=== PATIENT | male | born 1995 | race Caucasian/White ===

== ENCOUNTER 2019-12-07 17:38 | Emergency (ER) | payer BC, SELFPAY ==
--- NOTE | ~2019-12-07 | US_ITS ---
EXAMINATION: US venous doppler [facility] DATE: 12/07/2019 18:25 INDICATION: Left lower limb pain TECHNIQUE: Anderson scale images without and with compression and Doppler images of the left lower extrem ity veins were obtained. COMPARISON: None FINDINGS: The left common femoral vein, profunda femoral vein, femoral vein, popliteal vein, peroneal trunk, posterior tibial veins, and greater saphenous vein are patent. IMPRESSION: 1. Patent left lower extremity veins. No evidence of deep venous thrombosis. Reviewed, dictated and finalized at location A.
--- NOTE | ~2019-12-07 | XR_ITS ---
EXAMINATION: XR chest 2V DATE: 12/07/2019 18:14 INDICATION: Shortness of breath and chest pain TECHNIQUE: PA and lateral views of the chest are obtained. COMPARISON: 09/06/2007 FINDINGS: The lungs are free of acute opacities. There is no pleural effusion or pneumothorax. The ca rdiomediastinal silhouette is normal. The visualized bones and soft tissues are unremarkable. IMPRESSION: 1. No acute cardiopulmonary abnormality. Reviewed, dictated and finalized at location A.
--- NOTE | 2019-12-07 17:39 | ECG_ITS ---
Measurements Intervals [place] Rate: 79 P: 16 NH: 155 QRS: 8 QRSD: 112 T: 14 QT: 361 QTc: 415 Interpretive Statements SINUS RHYTHM WITH SINUS ARRHYTHMIA INCOMPLETE RIGHT BUNDLE BRANCH BLOCK BORDERLINE R WAVE PROGRESSION, ANTERIOR LEADS BORDERLINE T WAVE ABNORMALITY- INFERIOR LEADS BORDERLINE ECG Electronically Signed On 12-07-2019 19:22:56 CDT by Layton Cruz D.O.
[2019-12-07 17:47] VITALS: BP 150/97; PULSE 91; RESP 16; TEMP 36.2; O2SAT 100
[2019-12-07 18:08] LABS: Basophils Absolute Auto 0.1 K/mm3 (0.0-0.1); Basophils Percent Auto 0.8 % (0.2-1.2); Eosinophils Absolute Auto 0.1 K/mm3 (0-0.3); Eosinophils Percent Auto 1.2 % (0-4.4); Hematocrit 43.5 % (42.0-52.0); Hemoglobin 15.1 g/dL (14.0-18.0); Immature Granulocyte Absolute 0.02 K/mm3 (0.00-0.031); Immature Granulocyte Percent A 0.3 % (0-0.5); Lymphocytes Absolute Auto 2.46 K/mm3 (0.9-3.2); Lymphocytes Percent Auto 32.8 % (18.3-44.2); Mean Corpuscular HGB Conc 34.7 g/dl (32-36); Mean Corpuscular Hemoglobin 31.1 pg (26-34); Mean Corpuscular Volume 89.7 fl (80-100); Mean Platelet Volume 10.8 fl (7.4-10.4); Monocytes Absolute Auto 0.6 K/mm3 (0.1-0.6); Monocytes Percent Auto 7.6 % (2.6-8.5); Neutrophils Absolute Auto 4.3 K/mm3 (1.3-6.7); Neutrophils Percent Auto 57.3 % (45.5-73.1); Platelet Count Result 215 k/mm3 (150-375); Red Blood Count 4.85 M/mm3 (4.6-6.20); Red Cell Distribution Width 12.3 % (11.5-14.5); White Blood Count 7.5 K/mm3 (4.5-10.0)
[2019-12-07 18:19] LABS: Prothrombin Time 12.7 Seconds (11.1-14.7)
[2019-12-07 18:20] LABS: Blood Urea Nitrogen 13 mg/dL (9-20); Calcium 9.3 mg/dL (8.4-10.2); Carbon Dioxide 22 mmol/L (22-30); Chloride 104 mmol/L (98-107); Estimated CRCL calculation 134 ml/min; Estimated Glomerular Filt Rate > 60; Glucose 99 mg/dL (75-110); Partial Thromboplastin Time 26.3 SECONDS (22.3-36.8); Sodium 137 mmol/L (137-145)
[2019-12-07 18:32] LABS: Troponin I < 0.012 ng/mL (0.000-0.034)
--- NOTE | 2019-12-07 19:23 | PC.NURSE ---
Pt to intake desk stating that he is feeling better and is going to leave. Iv that pt arrived with was removed from pt arm. Pt states that he will contact his primary to get his test results. Pt left with a steady gate.
== END 2019-12-07 19:23 | disposition left against medical advice (07) ==
PROVIDERS: Emergency Provider Emergency Medicine; PCP Family Medicine
DX: M79.605 Pain in left leg (principal)
CPT/HCPCS: 36415; 71046; 80048; 84484; 85025; 85610; 85730; 93005; 93971; 99199

== ENCOUNTER 2020-03-03 17:35 | Emergency (ER) | payer BC, SELFPAY ==
[2020-03-03 17:51] VITALS: BP 136/80; PULSE 96; RESP 18; TEMP 36; O2SAT 100
[2020-03-03 18:07] VITALS: BP 145/95; PULSE 95; RESP 18; O2SAT 100
[2020-03-03] MEDS: methylPREDNISolone SOD SUCC 125 MG VIAL IM (18:49)
--- NOTE | 2020-03-03 19:33 | ED.SKABFB ---
HPI - Skin/Abscess/Foreign Bdy General Chief complaint: Skin/Abscess/Foreign Body Stated complaint: rxn to cortisone? Time Seen by Provider: 03/03/20 18:06 Source: patient Mode of arrival: ambulatory Limitations: no limitations History of Present Illness HPI narrative: Patient presents for evaluation of red and warm rash on his arms across his chest and on his cheeks that began after he received a cortisone injection in his right elbow. Patient states he has felt a little flushed but denies fever, nausea, vomiting, diarrhea or lethargy. Patient has not taken anything to alleviate his symptoms. Patient denies any other areas of concern. Related Data Home Medications Medication Instructions Recorded Confirmed lisinopril 10 mg tablet 10 mg PO DAILY 01/20/20 Allergies Allergy/AdvReac Type Severity Reaction Status Date / Time No Known Allergies Allergy Mild Verified 01/20/20 16:48 Review of Systems Review of Systems: Narrative: CONSTITUTIONAL: Denies fever, chills, or sweats. EYES: Denies visual changes, redness, or discharge. ENT: Denies rhinorrhea, congestion, sore throat, or otalgia. CARDIOVASCULAR: Denies chest pain, palpitations, or edema. RESPIRATORY: Denies cough or dyspnea. GASTROINTESTINAL: Denies abdominal pain, nausea, vomiting, or diarrhea. GENITOURINARY: Denies dysuria or hematuria. SKIN: Reports rash denies itching. MUSCULOSKELETAL: Denies back pain, joint pain, or myalgia. NEUROLOGIC: Denies headache, numbness, dizziness, or weakness. PSYCHIATRIC: Denies anxiety or depression. [facility] Past Medical History Medical History (Updated 03/03/20 @ 19:44 by Maira Guzman PA-C) Anxiety Anxiety Cough Depression GERD (gastroesophageal reflux disease) Globus sensation Gout HTN (hypertension) Hypertension RINKU (obstructive sleep apnea) Seborrheic dermatitis of scalp Wellness examination Family History Family History (System 01/20/20 @ 16:48 by Beba Alicea) Mother Hypertension Social History Social History (System 01/20/20 @ 16:48 by Beba Alicea) Smoking status: Current some day smoker Tobacco type: cigarettes Second hand tobacco smoke exposure: No Smoking end date: 06/17/18 Alcohol intake: current Drinks per week: 6 Substance use: never Substance use type: does not use Gender identity (if verbalized by the patient): Male Exam Narrative: Exam Narrative: GENERAL: Well-appearing, well-nourished, and in no acute distress. HEAD: Normocephalic, atraumatic. EYES: PERRLA and EOMI. ENT: Nares clear, no rhinorrhea or epistaxis. Mucous membranes moist. Oropharynx without tonsillar hypertrophy exudate or other lesions- no rash, swelling, or erythema to oropharynx. Bilateral TMs pearly abraham non bulging NECK: Supple. No adenopathy or masses. CHEST: Clear to auscultation. No respiratory distress. No wheezes rales or rhonchi HEART: Regular rate and rhythm. No murmur heard. Normal peripheral pulses. EXTREMITIES: Normal range of motion. No edema. SKIN: Slightly red and warm to the upper arms,upper chest, and cheek, blanchable. NEURO: No focal deficits. Alert and oriented x3. PSYCH: Normal mood and affect. Course Vital Signs Vital signs: Vital Signs Temperature 96.8 F L 03/03/20 17:51 Pulse Rate 96 03/03/20 17:51 Respiratory Rate 18 03/03/20 17:51 Blood Pressure 136/80 03/03/20 17:51 Pulse Oximetry 100 03/03/20 17:51 Temperature 96.8 F L 03/03/20 17:51 Pulse Rate 95 03/03/20 18:07 Respiratory Rate 18 03/03/20 18:07 Blood Pressure 145/95 H 03/03/20 18:07 Pulse Oximetry 100 03/03/20 18:07 MDM - Skin/Abscess/Foreign Bdy MDM Narrative Medical decision making narrative: Patient improved with Solu-Medrol. Patient will be given Pepcid and zyrtec to take at home. Patient directed to follow-up with his primary care for reevaluation, sooner if he has any questions or concerns. Patient directed to return to emergency department if
[2020-03-03 20:18] VITALS: BP 140/89; PULSE 92; RESP 20; TEMP 36.2; O2SAT 99
== END 2020-03-03 20:18 | disposition home or self-care (01) ==
PROVIDERS: Emergency Provider Emergency Medicine; PCP Family Medicine
DX: L27.0 Generalized skin eruption due to drugs and medicaments taken internally (principal); T38.0X5A Adverse effect of glucocorticoids and synthetic analogues, initial encounter; K21.9 Gastro-esophageal reflux disease without esophagitis; M10.9 Gout, unspecified; I10 Essential (primary) hypertension; G47.33 Obstructive sleep apnea (adult) (pediatric)
CPT/HCPCS: 96372; 99283; J2930

== ENCOUNTER 2020-04-19 15:13 | Emergency (ER) | payer BC, SELFPAY ==
--- NOTE | ~2020-04-19 | XR_ITS ---
EXAMINATION: XR chest 2V DATE: 04/19/2020 16:43 INDICATION: Right chest pain. Shortness of breath. TECHNIQUE: Frontal and lateral views of the chest were obtained. COMPARISON: Chest 2 views 12/07/2019 FINDINGS: The chest demonstrates clear lungs without pneumonia, pleural effusion, or pneumothorax. Th e heart size is normal. IMPRESSION: 1. No acute cardiopulmonary disease. Reviewed, dictated and finalized at location A. SHAVER HELPER
--- NOTE | 2020-04-19 15:22 | ECG_ITS ---
Measurements Intervals [place] Rate: 94 P: 33 HI: 160 QRS: -80 QRSD: 112 T: 30 QT: 344 QTc: 432 Interpretive Statements SINUS RHYTHM INCOMPLETE RIGHT BUNDLE BRANCH BLOCK LEFT ANTERIOR FASCICULAR BLOCK BASELINE WANDER- II, III ABNORMAL ECG Electronically Signed On 04-20-2020 12:21:26 FITNESS SALES CONSULTANT by Layton Cruz D.O.
[2020-04-19 15:23] VITALS: BP 138/87; PULSE 99; RESP 18; TEMP 37.2; O2SAT 100
[2020-04-19 15:39] LABS: Basophils Absolute Auto 0.1 K/mm3 (0.0-0.1); Basophils Percent Auto 0.9 % (0.2-1.2); Eosinophils Absolute Auto 0.1 K/mm3 (0-0.3); Eosinophils Percent Auto 1.1 % (0-4.4); Hematocrit 44.3 % (42.0-52.0); Hemoglobin 15.6 g/dL (14.0-18.0); Immature Granulocyte Absolute 0.01 K/mm3 (0.00-0.031); Immature Granulocyte Percent A 0.1 % (0-0.5); Lymphocytes Absolute Auto 2.76 K/mm3 (0.9-3.2); Lymphocytes Percent Auto 39.7 % (18.3-44.2); Mean Corpuscular HGB Conc 35.2 g/dl (32-36); Mean Corpuscular Hemoglobin 31.6 pg (26-34); Mean Corpuscular Volume 89.7 fl (80-100); Mean Platelet Volume 9.8 fl (7.4-10.4); Monocytes Absolute Auto 0.5 K/mm3 (0.1-0.6); Monocytes Percent Auto 7.5 % (2.6-8.5); Neutrophils Absolute Auto 3.5 K/mm3 (1.3-6.7); Neutrophils Percent Auto 50.7 % (45.5-73.1); Platelet Count Result 241 k/mm3 (150-375); Red Blood Count 4.94 M/mm3 (4.6-6.20); Red Cell Distribution Width 12.4 % (11.5-14.5)
[2020-04-19 15:51] LABS: Prothrombin Time 13.4 Seconds (11.1-14.7)
[2020-04-19 15:52] LABS: Partial Thromboplastin Time 26.1 SECONDS (22.3-36.8)
--- NOTE | 2020-04-19 16:55 | PC.NURSE ---
In to place patient on monitor, states so what is the news, can I go? Explained to patient that I had given him a gown to change into, and was going to place on the cardiac tech to evaluate his rhythm. States oh, carloz, I thought I would be done a long time ago. I didn't know I have to wait some more. I have to go to work . Pt states has not been evaluated by an ERP, and that the blood work has not returned as of yet. Pt states, well, just call me with the results. I have to go to work. I think it was all anxiety anyways . Pt encouraged to return if pain worsens and to follow up with Dr. Li if pain does not reside. Ambulatory to exit.
== END 2020-04-19 16:58 | disposition left against medical advice (07) ==
PROVIDERS: Emergency Provider Emergency Medicine; PCP Family Medicine
DX: R07.9 Chest pain, unspecified (principal)
CPT/HCPCS: 36415; 71046; 85025; 85610; 85730; 93005; 99199

== ENCOUNTER 2020-04-27 18:23 | Emergency (ER) | payer BC, SELFPAY ==
[2020-04-27 18:42] VITALS: BP 121/68; PULSE 84; RESP 16; TEMP 36.6; O2SAT 100
--- NOTE | 2020-04-27 18:44 | ECG_ITS ---
Measurements Intervals [place] Rate: 84 P: 22 FL: 164 QRS: -5 QRSD: 104 T: 21 QT: 360 QTc: 426 Interpretive Statements SINUS RHYTHM WITH SINUS ARRHYTHMIA INCOMPLETE RIGHT BUNDLE BRANCH BLOCK BORDERLINE R WAVE PROGRESSION, ANTERIOR LEADS BORDERLINE ECG Electronically Signed On 04-28-2020 7:56:26 PULP SCREEN OPERATOR by Layton Cruz D.O.
--- NOTE | 2020-04-27 19:35 | PC.NURSE ---
pt called x 2 no response, charge nurse aware
--- NOTE | 2020-04-27 19:57 | PC.NURSE ---
Patient's name called multiple times at 1930 and 1952 for patient to be taken back to ED room. No answer.
--- NOTE | 2020-04-27 20:00 | PC.NURSE ---
Patient called at 1923,1929,nd 1949 without answer. Left wo being seen
== END 2020-04-27 20:00 | disposition left against medical advice (07) ==
LOC: ANHED 20:42
PROVIDERS: Emergency Provider Emergency Medicine; PCP Family Medicine
DX: R07.9 Chest pain, unspecified (principal)
CPT/HCPCS: 93005; 99199

== ENCOUNTER 2020-04-28 09:28 | Emergency (ER) | payer BC, SELFPAY ==
--- NOTE | ~2020-04-28 | XR_ITS ---
EXAMINATION: XR chest 2V DATE: 04/28/2020 10:34 INDICATION: Chest pain and shortness of breath. TECHNIQUE: Frontal and lateral views of the chest were obtained. COMPARISON: Chest 2 views 04/19/2020 FINDINGS: The chest demonstrates clear lungs without pneumonia, pleural effusion, or pneumothorax. Th e heart size is normal. IMPRESSION: 1. No acute cardiopulmonary disease. Reviewed, dictated and finalized at location B. EMAN
--- NOTE | 2020-04-28 10:06 | ECG_ITS ---
Measurements Intervals [place] Rate: 79 P: 11 OR: 171 QRS: 9 QRSD: 115 T: 19 QT: 362 QTc: 415 Interpretive Statements SINUS RHYTHM INCOMPLETE RIGHT BUNDLE BRANCH BLOCK DELAYED PRECORDIAL R/S TRANSITION BORDERLINE ECG Electronically Signed On 04-28-2020 14:42:46 BOTTOM SAW OPERATOR by Layton Cruz D.O.
[2020-04-28 10:08] VITALS: BP 138/86; PULSE 71; RESP 14; TEMP 36.1; O2SAT 99
[2020-04-28] MEDS: ASPIRIN 81 MG CHEWABLE TABLET 324 MG PO (10:27)
--- NOTE | 2020-04-28 10:42 | ED.ANXIETY ---
HPI - Anxiety General Chief Complaint: Anxiety Stated Complaint: panic attack with chest pain Time Seen by Provider: 04/28/20 10:00 Source: patient Mode of arrival: ambulatory Limitations: no limitations History of Present Illness HPI narrative: 24 years old white male presents with intermittent chest pain, shortness of breath, dizziness, numbness all over for the last few months. Patient was seen by his family physician 1 week ago and was told that he have anxiety related symptoms. Patient had history of hypertension, anxiety and depression. Patient reports a lot of stress lately. Patient denies any fever, chills, nausea, vomiting, headache, sore throat, fever or exposure to anybody with COVID-19 Related Data Home Medications Medication Instructions Recorded Confirmed buspirone 5 mg tablet 20 mg PO BID tablet 04/20/20 04/20/20 Allergies Allergy/AdvReac Type Severity Reaction Status Date / Time No Known Allergies Allergy Mild Verified 04/28/20 10:11 Review of Systems Review of Systems: Narrative: CONSTITUTIONAL: Denies fever, chills, or sweats. EYES: Denies visual changes, redness, or discharge. ENT: Denies rhinorrhea, congestion, sore throat, or otalgia. CARDIOVASCULAR: Denies chest pain, palpitations, or edema. RESPIRATORY: Denies cough or dyspnea. GASTROINTESTINAL: Denies abdominal pain, nausea, vomiting, or diarrhea. GENITOURINARY: Denies dysuria or hematuria. SKIN: Denies rash or itching. MUSCULOSKELETAL: Denies back pain, joint pain, or myalgia. NEUROLOGIC: Denies headache, numbness, or weakness. PSYCHIATRIC: Denies anxiety or depression. [facility] Past Medical History Medical History Anxiety Anxiety Cough Depression GERD (gastroesophageal reflux disease) Globus sensation Gout HTN (hypertension) Hypertension RINKU (obstructive sleep apnea) Seborrheic dermatitis of scalp Wellness examination Family History Family History Mother Hypertension Social History Social History Smoking status: Current some day smoker Tobacco type: cigarettes Second hand tobacco smoke exposure: No Smoking end date: 06/17/18 Alcohol intake: current Drinks per week: 6 Substance use: never Substance use type: does not use Gender identity (if verbalized by the patient): Male Exam Narrative: Exam Narrative: General appearance: Well-developed, well-nourished Skin: Normal color Head: Normocephalic, nontraumatic Eyes: Clear conjunctiva ENT: Oropharynx normal, ears normal, nose normal Neck: Supple, nontender Chest and respiratory: Airway patent, no respiratory distress, no accessory muscle use Heart: Regular rate/rhythm Abdomen: Soft, nontender, no organomegaly, quiet bowel sounds Vascular: Normal peripheral pulses, normal capillary refill. Musculoskeletal: Normal range of motion, nontender back Neurologic: Alert and oriented ?3, PUBLIC HOUSING MANAGER is normal as tested, no gross motor deficit Course Course Emergency Course: Stable Vital Signs Vital signs: Vital Signs Temperature 36.1 C L 04/28/20 10:08 Pulse Rate 71 04/28/20 10:08 Respiratory Rate 14 04/28/20 10:08 Blood Pressure 138/86 04/28/20 10:08 Pulse Oximetry 99 04/28/20 10:08 Temperature 36.1 C L 04/28/20 10:08 Pulse Rate 71 04/28/20 10:08 Respiratory Rate 14 04/28/20 10:08 Blood Pressure 138/86 04/28/20 10:08 Pulse Oximetry 99 04/28/20 10:08 MDM - Anxiety MDM Narrative Medical decision making narrative: Anxiety related symptom is my concern. Labs, chest x-ray, EKG ordered. Will Patient
[2020-04-28 10:44] LABS: Basophils Absolute Auto 0.1 K/mm3 (0.0-0.1); Basophils Percent Auto 0.8 % (0.2-1.2); Eosinophils Absolute Auto 0.1 K/mm3 (0-0.3); Eosinophils Percent Auto 1.4 % (0-4.4); Hematocrit 43.8 % (42.0-52.0); Hemoglobin 15.2 g/dL (14.0-18.0); Immature Granulocyte Absolute 0.02 K/mm3 (0.00-0.031); Immature Granulocyte Percent A 0.3 % (0-0.5); Lymphocytes Absolute Auto 2.28 K/mm3 (0.9-3.2); Lymphocytes Percent Auto 35.6 % (18.3-44.2); Mean Corpuscular HGB Conc 34.7 g/dl (32-36); Mean Corpuscular Hemoglobin 31.5 pg (26-34); Mean Corpuscular Volume 90.9 fl (80-100); Mean Platelet Volume 10.1 fl (7.4-10.4); Monocytes Absolute Auto 0.6 K/mm3 (0.1-0.6); Monocytes Percent Auto 8.6 % (2.6-8.5); Neutrophils Absolute Auto 3.4 K/mm3 (1.3-6.7); Neutrophils Percent Auto 53.3 % (45.5-73.1); Platelet Count Result 247 k/mm3 (150-375); Red Blood Count 4.82 M/mm3 (4.6-6.20); Red Cell Distribution Width 12.2 % (11.5-14.5); White Blood Count 6.4 K/mm3 (4.5-10.0)
[2020-04-28 10:56] LABS: Anion Gap 12 mmol/L (8-16); Blood Urea Nitrogen 18 mg/dL (9-20); Calcium 9.9 mg/dL (8.4-10.2); Carbon Dioxide 27 mmol/L (22-30); Chloride 101 mmol/L (98-107); Estimated CRCL calculation 125 ml/min; Estimated Glomerular Filt Rate > 60; Glucose 105 mg/dL (75-110); Sodium 140 mmol/L (137-145)
[2020-04-28 10:58] LABS: Partial Thromboplastin Time 27.7 SECONDS (22.3-36.8)
[2020-04-28 11:07] LABS: Troponin I < 0.012 ng/mL (0.000-0.034)
[2020-04-28 11:26] VITALS: PULSE 66; RESP 15; O2SAT 95
[2020-04-28 11:37] VITALS: BP 121/89; PULSE 64; RESP 16; O2SAT 100
== END 2020-04-28 11:38 | disposition home or self-care (01) ==
PROVIDERS: Emergency Provider Emergency Medicine; PCP Family Medicine
DX: F43.22 Adjustment disorder with anxiety (principal); F41.9 Anxiety disorder, unspecified; F32.9 Major depressive disorder, single episode, unspecified; I10 Essential (primary) hypertension; G47.33 Obstructive sleep apnea (adult) (pediatric); F17.210 Nicotine dependence, cigarettes, uncomplicated; I45.10 Unspecified right bundle-branch block
CPT/HCPCS: 36415; 71046; 80048; 84484; 85025; 85610; 85730; 93005; 99284; A9270

== ENCOUNTER 2020-05-12 02:02 | Emergency (ER) | payer BC, SELFPAY ==
[2020-05-12 02:05] VITALS: BP 132/91; PULSE 103; RESP 16; TEMP 36.4; O2SAT 99
--- NOTE | 2020-05-12 02:17 | ED.GENADULT ---
HPI - General Adult General Chief complaint: Extremity Injury, Lower Stated complaint: LEG PAIN Time Seen by Provider: 05/12/20 02:12 History of Present Illness HPI narrative: Patient is a 24-year-old gentleman who presents the emergency department with chief complaint of left calf pain. 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 Patient states that it is aching reports that this not improved by anything states that he is a non-smoker and has no prior history of DVT but was concerned today about having a DVT. Related Data Home Medications Medication Instructions Recorded Confirmed buspirone 5 mg tablet 20 mg PO BID tablet 04/20/20 04/20/20 Allergies Allergy/AdvReac Type Severity Reaction Status Date / Time No Known Allergies Allergy Mild Verified 04/28/20 10:11 Review of Systems Review of Systems: Narrative: CONSTITUTIONAL: Denies fever, chills, or sweats. EYES: Denies visual changes, redness, or discharge. ENT: Denies rhinorrhea, congestion, sore throat, or otalgia. CARDIOVASCULAR: Denies chest pain, palpitations, or edema. RESPIRATORY: Denies cough or dyspnea. GASTROINTESTINAL: Denies abdominal pain, nausea, vomiting, or diarrhea. GENITOURINARY: Denies dysuria or hematuria. SKIN: Denies rash or itching. MUSCULOSKELETAL: Denies back pain, joint pain, or myalgia. NEUROLOGIC: Denies headache, numbness, or weakness. PSYCHIATRIC: Denies anxiety or depression. A 10 system review of systems was completed on the patient and is negative except for what is stated in the HPI. Nursing and ancillary documentation was reviewed. [facility] Past Medical History Medical History Anxiety Anxiety Cough Depression GERD (gastroesophageal reflux disease) Globus sensation Gout HTN (hypertension) Hypertension RINKU (obstructive sleep apnea) Seborrheic dermatitis of scalp Wellness examination Family History Family History Mother Hypertension Social History Social History Smoking status: Current some day smoker Tobacco type: cigarettes Second hand tobacco smoke exposure: No Smoking end date: 06/17/18 Alcohol intake: current Drinks per week: 6 Substance use: never Substance use type: does not use Gender identity (if verbalized by the patient): Male Exam Narrative: Exam Narrative: GENERAL: Well-appearing, well-nourished, and in no acute distress. HEAD: Normocephalic, atraumatic. EYES: PERRLA and EOMI. ENT: Nares clear, no rhinorrhea or epistaxis. Mucous membranes moist. NECK: Supple. CHEST: Clear to auscultation. No respiratory distress. HEART: Regular rate and rhythm. No murmur heard. Normal peripheral pulses. ABDOMEN: Soft, nontender, nondistended, normal active bowel sounds. EXTREMITIES: Normal range of motion. No edema. SKIN: Warm, dry, no rash. NEURO: No focal deficits. Alert and oriented x3. PSYCH: Normal mood and affect. Course Course Emergency Course: Patient's D-dimer was negative. The patient will be scheduled for a outpatient venous duplex the earliest appointment which will be Saturday morning at 730 given his D-dimer is negative at this time the patient will not be anticoagulated. Vital Signs Vital signs: Vital Signs Temperature 36.4 C 05/12/20 02:05 Pulse Rate 103 H 05/12/20 02:05 Respiratory Rate 16 05/12/20 02:05 Blood Pressure 132/91 H 05/12/20 02:05 Pulse Oximetry 99 05/12/20 02:05 Temperature 36.4 C 05/12/20 03:20 Pulse Rate 94 05/12/20 03:20 Respiratory Rate 16 05/12/20 03:20 Blood Pressure 133/91 H 05/12/20 03:20 Pulse Oximetry 98 05/12/20 03:20 Medical Decision Making Vital Signs Vital Signs: Vital Signs Temperature 36.4 C 05/12/20 02:05 Pulse Rate 103 H 05/12/20 02:05 Respiratory Rate
[2020-05-12 02:40] LABS: Basophils Absolute Auto 0.1 K/mm3 (0.0-0.1); Basophils Percent Auto 0.9 % (0.2-1.2); Eosinophils Absolute Auto 0.1 K/mm3 (0-0.3); Eosinophils Percent Auto 1.9 % (0-4.4); Hematocrit 42.2 % (42.0-52.0); Hemoglobin 14.5 g/dL (14.0-18.0); Immature Granulocyte Absolute 0.01 K/mm3 (0.00-0.031); Immature Granulocyte Percent A 0.1 % (0-0.5); Lymphocytes Absolute Auto 2.77 K/mm3 (0.9-3.2); Lymphocytes Percent Auto 40.1 % (18.3-44.2); Mean Corpuscular HGB Conc 34.4 g/dl (32-36); Mean Corpuscular Hemoglobin 31.1 pg (26-34); Mean Corpuscular Volume 90.6 fl (80-100); Mean Platelet Volume 9.6 fl (7.4-10.4); Monocytes Absolute Auto 0.6 K/mm3 (0.1-0.6); Monocytes Percent Auto 8.6 % (2.6-8.5); Neutrophils Absolute Auto 3.3 K/mm3 (1.3-6.7); Neutrophils Percent Auto 48.4 % (45.5-73.1); Platelet Count Result 224 k/mm3 (150-375); Red Blood Count 4.66 M/mm3 (4.6-6.20); Red Cell Distribution Width 12.2 % (11.5-14.5); White Blood Count 6.9 K/mm3 (4.5-10.0)
[2020-05-12 02:45] LABS: Partial Thromboplastin Time 26.6 SECONDS (22.3-36.8)
[2020-05-12 02:47] LABS: Anion Gap 14 mmol/L (8-16); Blood Urea Nitrogen 18 mg/dL (9-20); Calcium 9.5 mg/dL (8.4-10.2); Carbon Dioxide 23 mmol/L (22-30); Chloride 104 mmol/L (98-107); Estimated CRCL calculation 136 ml/min; Estimated Glomerular Filt Rate > 60; Glucose 117 mg/dL (75-110); Sodium 141 mmol/L (137-145)
[2020-05-12 02:52] LABS: INR 0.9
[2020-05-12 03:03] LABS: D Dimer 0.27 ug/mL (<0.48)
[2020-05-12 03:20] VITALS: BP 133/91; PULSE 94; RESP 16; TEMP 36.4; O2SAT 98
== END 2020-05-12 03:21 | disposition home or self-care (01) ==
PROVIDERS: Emergency Provider Emergency Medicine; PCP Family Medicine
DX: M79.662 Pain in left lower leg (principal); F41.9 Anxiety disorder, unspecified; F32.9 Major depressive disorder, single episode, unspecified; K21.9 Gastro-esophageal reflux disease without esophagitis; M10.9 Gout, unspecified; I10 Essential (primary) hypertension; G47.33 Obstructive sleep apnea (adult) (pediatric); F17.210 Nicotine dependence, cigarettes, uncomplicated
CPT/HCPCS: 36415; 80048; 85025; 85380; 85610; 85730; 99283

== ENCOUNTER 2020-05-23 17:57 | Emergency (ER) | payer BC, SELFPAY ==
[2020-05-23] VITALS (12 sets, daily range): BP systolic 142–162; BP diastolic 80–114; PULSE 57–81; RESP 9–18; TEMP 36.8; O2SAT 97–100
--- NOTE | ~2020-05-23 | XR_ITS ---
EXAMINATION: XR chest 1V portable INDICATION: Chest pain TECHNIQUE: Portable AP chest at 1903 hours COMPARISON: FINDINGS: The lungs are free of acute opacities. There is no pleural effusion or pneumothorax. The ca rdiomediastinal silhouette is normal. IMPRESSION: 1. No acute cardiopulmonary abnormality. Reviewed, dictated and finalized at location A. WASH ATTENDANT
--- NOTE | 2020-05-23 18:39 | ECG_ITS ---
Measurements Intervals [place] Rate: 63 P: 29 ID: 172 QRS: 5 QRSD: 117 T: 30 QT: 383 QTc: 394 Interpretive Statements SINUS RHYTHM WITH SINUS ARRHYTHMIA INTRAVENTRICULAR CONDUCTION DELAY DELAYED PRECORDIAL R/S TRANSITION BORDERLINE ECG Electronically Signed On 05-23-2020 19:36:36 PEDIATRIC ONCOLOGY NURSE by Layton Cruz D.O.
--- NOTE | 2020-05-23 18:48 | ED.CHESTPAIN ---
HPI - Chest Pain General Chief Complaint: Chest Pain Stated Complaint: CP/SOB XTD Time Seen by Provider: 05/23/20 18:37 Source: patient Mode of arrival: ambulatory Limitations: no limitations History of Present Illness HPI narrative: This is a 24-year-old male that presents the emergency department for intermittent sharp substernal chest pain since this afternoon. Associated with shortness of breath. Denies fever, cough, or lower extremity edema. Related Data Allergies Allergy/AdvReac Type Severity Reaction Status Date / Time dexamethasone [From Decadron] Allergy Rash Verified 05/23/20 18:40 Review of Systems Review of Systems: Narrative: CONSTITUTIONAL: Denies fever ENT: Denies rhinorrhea, congestion CARDIOVASCULAR: Reports chest pain. Denies edema. RESPIRATORY: Reports dyspnea. Denies cough All systems reviewed & are unremarkable except as noted in HPI and below PMFSH Past Medical History Medical History Anxiety Anxiety Cough Depression GERD (gastroesophageal reflux disease) Globus sensation Gout HTN (hypertension) Hypertension RINKU (obstructive sleep apnea) Seborrheic dermatitis of scalp Wellness examination Family History Family History Mother Hypertension Social History Social History (Updated 05/19/20 @ 16:00 by Jolie Rivera) Smoking status: Former smoker Tobacco type: cigarettes Smokeless tobacco user: chewing tobacco Second hand tobacco smoke exposure: No Smoking end date: 06/17/18 Alcohol intake: current Drinks per week: 6 Substance use: never Substance use type: does not use Gender identity (if verbalized by the patient): Male Exam Narrative: Exam Narrative: GENERAL: Well-appearing, obese, and in no acute distress. HEAD: Normocephalic, atraumatic. EYES: EOMI. ENT: Nares clear, no rhinorrhea or epistaxis. Mucous membranes moist. Oropharynx without tonsillar hypertrophy exudate or other lesions. NECK: Supple. No adenopathy or masses. CHEST: Clear to auscultation. No respiratory distress. No wheezes rales or rhonchi HEART: Regular rate and rhythm. No murmur heard. Normal peripheral pulses. EXTREMITIES: Normal range of motion. No edema. SKIN: Warm, dry, no rash. NEURO: No focal deficits. Alert and oriented x3. PSYCH: Normal mood and affect Course Vital Signs Vital signs: Vital Signs Temperature 98.3 F 05/23/20 18:35 Pulse Rate 81 05/23/20 18:35 Respiratory Rate 18 05/23/20 18:35 Blood Pressure 159/101 H 05/23/20 18:35 Pulse Oximetry 99 05/23/20 18:35 Temperature 98.3 F 05/23/20 18:35 Pulse Rate 67 05/23/20 20:00 Respiratory Rate 13 05/23/20 20:00 Blood Pressure 162/114 H 05/23/20 19:46 Pulse Oximetry 100 05/23/20 20:00 MDM - Chest Pain MDM Narrative Medical decision making narrative: Patient presents the emergency department for intermittent chest pain since this afternoon. Was also reporting shortness of breath. Patient does have history of anxiety. Has been to the ED multiple times with complaints of chest pain. He recently had an echo with Dr. Boswell that was without acute findings. He is afebrile and nontoxic-appearing. Oxygen saturation is normal on room air. Blood pressure was elevated on arrival, this improved without intervention. CBC and metabolic panel without concerning findings. BNP and troponin are not elevated. EKG is without concerning changes. Chest x-ray is clear. PERC criteria negative. Heart score is a 2. Patient was updated on case findings. He is stable and felt appropriate for further outpatient evaluation. He is to follow-up with primary care doctor. He was given warnings to return to the ER Lab Data Attestation: I reviewed the patient's lab results. Result diagrams: 05/23/20 18:44 Labs: Lab Results 05/23/20 05/23/20 05/23/20 Range/Units 18:44 18:
[2020-05-23] MEDS: ASPIRIN 81 MG CHEWABLE TABLET 324 MG PO (18:52)
[2020-05-23 18:55] LABS: Basophils Percent Auto 0.6 % (0.2-1.2); Eosinophils Absolute Auto 0.1 K/mm3 (0-0.3); Eosinophils Percent Auto 1.8 % (0-4.4); Hematocrit 42.3 % (42.0-52.0); Hemoglobin 14.6 g/dL (14.0-18.0); Immature Granulocyte Absolute 0.02 K/mm3 (0.00-0.031); Immature Granulocyte Percent A 0.3 % (0-0.5); Lymphocytes Absolute Auto 2.13 K/mm3 (0.9-3.2); Lymphocytes Percent Auto 34.4 % (18.3-44.2); Mean Corpuscular HGB Conc 34.5 g/dl (32-36); Mean Corpuscular Hemoglobin 31.5 pg (26-34); Mean Corpuscular Volume 91.2 fl (80-100); Mean Platelet Volume 9.7 fl (7.4-10.4); Monocytes Absolute Auto 0.4 K/mm3 (0.1-0.6); Monocytes Percent Auto 7.1 % (2.6-8.5); Neutrophils Absolute Auto 3.5 K/mm3 (1.3-6.7); Neutrophils Percent Auto 55.8 % (45.5-73.1); Platelet Count Result 231 k/mm3 (150-375); Red Blood Count 4.64 M/mm3 (4.6-6.20); White Blood Count 6.2 K/mm3 (4.5-10.0)
[2020-05-23 19:05] LABS: Prothrombin Time 13.9 Seconds (11.1-14.7)
[2020-05-23 19:06] LABS: Partial Thromboplastin Time 26.9 SECONDS (22.3-36.8)
[2020-05-23 19:14] LABS: NT Pro B Type Natriuretic Pept 103 PG/ML (5-100)
[2020-05-23 19:18] LABS: Troponin I < 0.012 ng/mL (0.000-0.034)
== END 2020-05-23 21:06 | disposition home or self-care (01) ==
PROVIDERS: Physician Assistant; Emergency Provider Emergency Medicine; PCP Family Medicine
DX: R07.9 Chest pain, unspecified (principal); Z87.891 Personal history of nicotine dependence; F41.9 Anxiety disorder, unspecified; F32.9 Major depressive disorder, single episode, unspecified; K21.9 Gastro-esophageal reflux disease without esophagitis; M10.9 Gout, unspecified; I10 Essential (primary) hypertension; G47.33 Obstructive sleep apnea (adult) (pediatric)
CPT/HCPCS: 36415; 71045; 83880; 84484; 85025; 85610; 85730; 93005; 99284; A9270

== ENCOUNTER 2020-09-15 10:49 | Emergency (ER) | payer SELFPAY ==
--- NOTE | ~2020-09-15 | US_ITS ---
EXAMINATION:US venous doppler LE LT INDICATION:Left leg swelling and pain TECHNIQUE: Multiple grayscale, color flow and Doppler images of the left lower extremity deep venous systems were obtained and reviewed. COMPARISON:No prior studies for comparison. FINDINGS: The common femoral, superficial femoral and popliteal veins demonstrate normal respiratory variation, augmentation and compressibility. Color flow is also seen within the posterior tibial, pe roneal, greater saphenous and profunda veins. IMPRESSION: 1: No lower extremity deep venous thrombosis. Reviewed, dictated and finalized at location B.
[2020-09-15 11:01] VITALS: BP 157/92; PULSE 89; RESP 18; TEMP 36.1; O2SAT 100
--- NOTE | 2020-09-15 11:44 | PC.NURSE ---
Ultrasound at bedside.
[2020-09-15 11:45] VITALS: BP 126/79; PULSE 84; RESP 15; O2SAT 100
[2020-09-15 11:52] LABS: Basophils Absolute Auto 0.1 K/mm3 (0.0-0.1); Basophils Percent Auto 0.8 % (0.2-1.2); Eosinophils Absolute Auto 0.1 K/mm3 (0-0.3); Eosinophils Percent Auto 1.4 % (0-4.4); Hematocrit 44.8 % (42.0-52.0); Hemoglobin 15.3 g/dL (14.0-18.0); Immature Granulocyte Absolute 0.02 K/mm3 (0.00-0.031); Immature Granulocyte Percent A 0.3 % (0-0.5); Lymphocytes Absolute Auto 1.92 K/mm3 (0.9-3.2); Lymphocytes Percent Auto 29.6 % (18.3-44.2); Mean Corpuscular HGB Conc 34.2 g/dl (32-36); Mean Corpuscular Hemoglobin 30.4 pg (26-34); Mean Corpuscular Volume 88.9 fl (80-100); Mean Platelet Volume 9.9 fl (7.4-10.4); Monocytes Absolute Auto 0.5 K/mm3 (0.1-0.6); Neutrophils Absolute Auto 3.9 K/mm3 (1.3-6.7); Neutrophils Percent Auto 59.9 % (45.5-73.1); Platelet Count Result 229 k/mm3 (150-375); Red Blood Count 5.04 M/mm3 (4.6-6.20); Red Cell Distribution Width 12.4 % (11.5-14.5); White Blood Count 6.5 K/mm3 (4.5-10.0)
[2020-09-15 12:03] LABS: Anion Gap 8 mmol/L (8-16); Blood Urea Nitrogen 17 mg/dL (9-20); Calcium 9.6 mg/dL (8.4-10.2); Carbon Dioxide 28 mmol/L (22-30); Chloride 104 mmol/L (98-107); Creatine Kinase 483 U/L (55-170); Estimated CRCL calculation 149 ml/min; Estimated Glomerular Filt Rate > 60; Glucose 134 mg/dL (75-110); Potassium 4.1 mmol/L (3.4-5.0); Sodium 140 mmol/L (137-145)
--- NOTE | 2020-09-15 12:12 | ED.GENADULT ---
HPI - General Adult General Chief complaint: Extremity Problem,Nontraumatic Stated complaint: left leg pain Time Seen by Provider: 09/15/20 10:57 Source: patient Mode of arrival: ambulatory Limitations: no limitations History of Present Illness HPI narrative: Patient is a 25-year-old male who presents to emergency department for evaluation of left calf pain radiating to the groin that began 2 days ago denies injury or trauma notes that he has seen some swelling of the calf as well in comparison to the right patient on arrival is in no distress denies similar occurrence or any recent illness or other complaints and does not appear uncomfortable Related Data Allergies Allergy/AdvReac Type Severity Reaction Status Date / Time dexamethasone [From Decadron] Allergy Rash Verified 09/15/20 11:04 Review of Systems Review of Systems: All systems reviewed & are unremarkable except as noted in HPI and below PMFSH Past Medical History Medical History Anxiety Anxiety Cough Depression GERD (gastroesophageal reflux disease) Globus sensation Gout HTN (hypertension) Hypertension RINKU (obstructive sleep apnea) Seborrheic dermatitis of scalp Wellness examination Family History Family History Mother Hypertension Social History Social History Smoking status: Former smoker Tobacco type: cigarettes Smokeless tobacco user: chewing tobacco Second hand tobacco smoke exposure: No Smoking end date: 06/17/18 Alcohol intake: current Drinks per week: 6 Substance use: never Substance use type: does not use Gender identity (if verbalized by the patient): Male Exam Narrative: Exam Narrative: GENERAL: Well-appearing, obese, and in no acute distress. HEAD: Normocephalic, atraumatic. EYES: PERRLA and EOMI. ENT: Nares clear, no rhinorrhea or epistaxis. Mucous membranes moist. CHEST: Clear to auscultation. No respiratory distress. No wheezes rales or rhonchi HEART: Regular rate and rhythm. No murmur heard. Normal peripheral pulses. EXTREMITIES: Normal range of motion. No edema. Tenderness of the left calf no other abnormalities noted mild tenderness if any tissues are soft no erythema no masses no palpable lesions SKIN: Warm, dry, no rash. NEURO: No focal deficits. Alert and oriented x3. Neurovascularly intact. Capillary refill less than 2 seconds PSYCH: Normal mood and affect. Course Course Emergency Course: Patient evaluated in the emergency department for left calf pain will be discharged home with plan follow-up with primary care will be advising limited weightbearing will be given instructions to watch for any worsening condition and will be advised to hydrate and manage with anti-inflammatories Vital Signs Vital signs: Vital Signs Temperature 96.9 F L 09/15/20 11:01 Pulse Rate 89 09/15/20 11:01 Respiratory Rate 18 09/15/20 11:01 Blood Pressure 157/92 H 09/15/20 11:01 Pulse Oximetry 100 09/15/20 11:01 Temperature 96.9 F L 09/15/20 11:01 Pulse Rate 84 09/15/20 11:45 Respiratory Rate 15 09/15/20 11:45 Blood Pressure 126/79 09/15/20 11:45 Pulse Oximetry 100 09/15/20 11:45 Medical Decision Making MDM Narrative Medical decision making narrative: Patients injury or pain is consistent with musculoskeletal etiology. No signs of neurological or vascular compromise on exam. Compartments and tisues are soft without signs of compartment syndrome. Pain is felt appropriate for further evaluation on an outpatient basis. Vital Signs Vital Signs: Vital Signs Temperature 96.9 F L 09/15/20 11:01 Pulse Rate 89 09/15/20 11:01 Respiratory Rate 18 09/15/20 11:01 Blood Pressure 157/92 H 09/15/20 11:01 Pulse Oximetry 100 09/15/20 11:01 Temperature 96.9 F L 09/15/20 11:01 Pulse Rate 84 09/15/20 11:45
[2020-09-15 12:36] VITALS: BP 146/88; PULSE 86; RESP 17; O2SAT 100
== END 2020-09-15 12:37 | disposition home or self-care (01) ==
PROVIDERS: Emergency Medicine Emergency Medical Services; Emergency Provider Emergency Medicine; PCP Family Medicine
DX: M79.662 Pain in left lower leg (principal); K21.9 Gastro-esophageal reflux disease without esophagitis; M10.9 Gout, unspecified; I10 Essential (primary) hypertension; G47.33 Obstructive sleep apnea (adult) (pediatric); Z87.891 Personal history of nicotine dependence
CPT/HCPCS: 36415; 80048; 82550; 85025; 93971; 99284

== ENCOUNTER 2024-04-16 10:50 | Outpatient (CLI) | payer BC, SELFPAY ==
--- NOTE | ~2024-04-16 | XR_ITS ---
EXAMINATION: XR foot LT 2V DATE: 04/16/2024 11:26 INDICATION: Nontraumatic pain plantar to the fifth metatarsal TECHNIQUE: Dorsoplantar and lateral views of the left foot were obtained. COMPARISON: None. FINDINGS: Alignment is normal. No fracture. Small Achilles and plantar calcaneal spurs. Mild osteoarthritis at the first metatarsophalangeal joint. Soft tissues are unremarkable. IMPRESSION: 1. Mild osteoarthritis at the first metatarsophalangeal joint. No acute osseous abnormality. Reviewed, dictated and finalized at location A.
== END 2024-04-16 10:51 | disposition home or self-care (01) ==
PROVIDERS: PCP Emergency Medicine; Visit Provider Emergency Medicine
DX: M19.072 Primary osteoarthritis, left ankle and foot (principal)
CPT/HCPCS: 73620